=== PATIENT | male | born 1995 | race Caucasian/White ===

== ENCOUNTER → 2016-11-01 | Outpatient (CLI) | payer OTHER ==
--- NOTE | 2016-11-01 10:18 | REP ---
Chest two views HISTORY: Pre-employment exam Comparison: None The lungs are clear. The heart is normal in size. The pulmonary vasculature is normal in appearance. The bony structure is intact. IMPRESSION: No acute disease. Signed by Huang Laurent MD 11/01/2016 10:10 A
== END ==
LOC: M WUC 09:45
PROVIDERS: ATTEND Physician Assistant
DX: Z02.1 Encounter for pre-employment examination (principal)

== ENCOUNTER → 2016-12-11 | Outpatient (CLI) | payer OTHER ==
--- NOTE | 2016-12-11 18:34 | REP ---
Right foot series: Four views. History: Pain in the right foot. Findings: Four views of the right foot show overall normal mineralization. No fracture or subluxation is seen. No periosteal reaction is noted. Impression: Negative right foot radiographs. Signed by Rolf Suarez MD 12/12/2016 08:33 A
== END ==
LOC: M WUC 18:03
PROVIDERS: ATTEND Physician Assistant
DX: M79.671 Pain in right foot (principal)

== ENCOUNTER → 2016-12-12 | Outpatient (REF) | payer OTHER | LOC: M LAB REF 13:30 | PROVIDERS: ATTEND Physician Assistant | DX: J02.9 Acute pharyngitis, unspecified (principal) ==

== ENCOUNTER → 2017-09-02 | Outpatient (CLI) | payer OTHER | LOC: M WUC 08:39 | DX: M25.571 Pain in right ankle and joints of right foot (principal); M79.671 Pain in right foot | CPT/HCPCS: 73630 ==

== ENCOUNTER → 2017-10-26 | Outpatient (CLI) | payer OTHER | LOC: M RAD 09:48 | DX: M79.671 Pain in right foot (principal) | CPT/HCPCS: 78315 ==

== ENCOUNTER 2020-04-30 01:58 | Emergency (ER) | payer OTHER ==
[~2020-04-30] VITALS: Ht 182.9 cm; Wt 95.5 kg
[2020-04-30 02:24] LABS: BASO % 0.5 % (0.0-1.0); EOS # 0.2 10^3/uL (0.0-0.5); EOS % 2.1 % (0.0-3.0); HEMATOCRIT 42.9 % (42.0-52.0); LYMPH % 38.7 % (24.0-44.0); MEAN CORPUSCULAR HGB CONC 32.6 g/dl (32.0-36.5); MEAN CORPUSCULAR VOLUME 88.8 fl (80.0-96.0); MONO # 0.5 10^3/uL (0.0-0.8); MONO % 6.8 % (0.0-5.0); NEUTROPHILS % 51.8 % (36.0-66.0); PLATELET COUNT, AUTOMATED 257 10^3/uL (150-450); RED BLOOD COUNT 4.83 10^6/uL (4.30-6.10); WHITE BLOOD COUNT 7.8 10^3/uL (4.0-10.0)
[2020-04-30 02:24] LABS: ABG BASE EXCESS -1.8 (-2.0-2.0); ABG O2 SATURATION 99.6 % (95.0-99.0); ABG PARTIAL PRESSURE CO2 44.4 mmHg (35.0-45.0); ABG PARTIAL PRESSURE O2 296.7 mmHg (75.0-100.0); ABG TOTAL CO2 25.3 MEQ/L (22.0-29.0)
[2020-04-30 02:34] LABS: INR 1.06
[2020-04-30 02:35] LABS: PARTIAL THROMBOPLASTIN TIME 26.8 SECONDS (24.2-38.5)
[2020-04-30 02:59] LABS: ALBUMIN 3.6 GM/DL (3.2-5.2); ALT/SGPT 31 U/L (12-78); BILIRUBIN,DIRECT < 0.1 MG/DL (0.0-0.2); BILIRUBIN,TOTAL 0.3 MG/DL (0.2-1.0); BLOOD UREA NITROGEN 17 MG/DL (7-18); CALCIUM LEVEL 8.1 MG/DL (8.5-10.1); CARBON DIOXIDE LEVEL 29 MEQ/L (21-32); CHLORIDE LEVEL 105 MEQ/L (98-107); CK-MB VALUE MASS 2.4 NG/ML (<3.6); CPK CREATINE PHOSPHOKINASE 195 U/L (39-308); CREATININE FOR GFR 1.08 MG/DL (0.70-1.30); FREE T4 1.03 NG/DL (0.76-1.46); GLOMERULAR FILTRATION RATE > 60.0 (>60); GLUCOSE, FASTING 96 MG/DL (70-100); MB/CK RELATIVE INDEX 1.23 (< OR =4); POTASSIUM SERUM 3.6 MEQ/L (3.5-5.1); SODIUM LEVEL 138 MEQ/L (136-145); TOTAL PROTEIN 6.8 GM/DL (6.4-8.2); TROPONIN I < 0.02 NG/ML (< 0.10)
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
[2020-04-30 04:58] VITALS: BP 127/52
--- NOTE | 2020-05-01 07:58 | ECGEPIP ---
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
== END 2020-04-30 05:08 | disposition home or self-care (01) ==
LOC: M ED 01:58
DX: J70.5 Respiratory conditions due to smoke inhalation (principal); T59.811A Toxic effect of smoke, accidental (unintentional), initial encounter; Y92.89 Other specified places as the place of occurrence of the external cause; Y93.89 Activity, other specified; Y99.0 Civilian activity done for income or pay

== ENCOUNTER 2021-02-02 01:24 | Emergency (ER) | payer OTHER ==
--- OUTSIDE RECORDS SUMMARY | 2021-02-02 01:27 | CCD ---
Author Author [facility] Organization [facility] Address Unknown Phone Unavailable Care Team Providers Care Speaker Wirer Name Role Phone BREANNAKEYA PA Unavailable Unavailable BREANNA, KEYA PA Unavailable Unavailable BREANNA, KEYA PA Unavailable Unavailable BREANNA, KEYA PA Unavailable Unavailable BREANNA, KEYA PA Unavailable Unavailable BREANNA, KEYA PA Unavailable Unavailable BREANNA, KEYA PA Unavailable Unavailable BREANNA, KEYA PA Unavailable Unavailable BREANNA, KEYA PA Unavailable Unavailable BREANNA, KEYA PA Unavailable Unavailable BREANNA, KEYA PA Unavailable Unavailable BREANNA, KEYA PA Unavailable Unavailable BREANNA, KEYA PA Unavailable Unavailable BREANNA, KEYA PA Unavailable Unavailable BREANNA, KEYA PA Unavailable Unavailable BREANNA, KEYA PA Unavailable Unavailable BREANNA, KEYA PA Unavailable Unavailable BREANNA, KEYA PA Unavailable Unavailable BREANNA, KEYA PA Unavailable Unavailable BREANNA, KEYA PA Unavailable Unavailable BREANNA, KEYA PA Unavailable Unavailable BREANNA, KEYA PA Unavailable Unavailable BREANNA, KEYA PA Unavailable Unavailable BREANNA, KEYA PA Unavailable Unavailable BREANNA, KEYA PA Unavailable Unavailable BREANNA, KEYA PA Unavailable Unavailable BREANNA, KEYA PA Unavailable Unavailable BREANNA, KEYA PA Unavailable Unavailable BREANNA, KEYA PA Unavailable Unavailable BREANNA, KEYA PA Unavailable Unavailable BREANNA, KEYA PA Unavailable Unavailable BREANNA, KEYA PA Unavailable Unavailable BREANNA, KEYA PA Unavailable Unavailable BREANNA, KEYA PA Unavailable Unavailable BREANNA, KEYA PA Unavailable Unavailable BREANNA, KEYA PA Unavailable Unavailable Kandi Martin MD Unavailable Unavailable Martin, Kandi VanessaLoreto Unavailable Unavailable Martin, C Loreto MD Unavailable Unavailable Martin, C Loreto MD Unavailable Unavailable Martin, C Loreto MD Unavailable Unavailable Martin, C Loreto MD Unavailable Unavailable Martin, C Loreto MD Unavailable Unavailable Martin, C Loreto MD Unavailable Unavailable Martin, C Loreto MD Unavailable Unavailable Martin, C Loreto MD Unavailable Unavailable Martin, C Loreto MD Unavailable Unavailable Martin, C Loreto MD Unavailable Unavailable Martin, C Loreto MD Unavailable Unavailable Martin, C Loreto MD Unavailable Unavailable Martin, C Loreto MD Unavailable Unavailable Amrtin, C Loreto MD Unavailable Unavailable Martin, C Loreto MD Unavailable Unavailable Martin, C Loreto MD Unavailable Unavailable Martin, C Loreto MD Unavailable Unavailable Martin, C Loreto MD Unavailable Unavailable Martin, C Loreto MD Unavailable Unavailable Martin, C Loreto MD Unavailable Unavailable Martin, C Loreto MD Unavailable Unavailable Martin, C Loreto MD Unavailable Unavailable Martin, C Loreto MD Unavailable Unavailable Re-disclosure Warning The records that you are about to access may contain information from federally-assisted alcohol or drug abuse programs. If such information is present, then the following federally mandated warning applies: This information has been disclosed to you from records protected by federal confidentiality rules (42 CFR part 2). The federal rules prohibit you from making any further disclosure of this information unless further disclosure is expressly permitted by the written consent of the person to whom it pertains or as otherwise permitted by 42 CFR part 2. A general authorization for the release of medical or other information is NOT sufficient for this purpose. The Federal rules restrict any use of the information to criminally investigate or prosecute any alcohol or drug abuse patient.The records that you are about to access may contain highly sensitive health information, the redisclosure of which is protected by Article 27-F of the [facility] Public Health law. If you continue you may have access to information: Regarding HIV / AIDS; Provided by facilities licensed or operated by the [facility] Office of Mental Health; or Provided by the [facility] Office for People With Developmental Disabilities. If such information is present, then the following [facility] mandated warning applies: This information has been disclosed to you from confidential records which are protected by state law. State law prohibits you from making any further disclosure of this information without the specific written consent of the person to whom it pertains, or as otherwise permitted by law. Any unauthorized further disclosure in violation of state law may result in a fine or custodial sentence or both. A general authorization for the release of medical or other information is NOT sufficient authorization for further disc losure. Family History Family Member Name Family Member Gender Family Member Status Date o f Status Description Data Source(s) Unknown Male Problem MEDENT ([facility]) Unknown Unknown Problem [facility] ([facility]) Encounters Encounter Providers Location Date Indications Data Source(s ) Outpatient Attender: Loreto Martin MD 0 06/08/2020 08:42:32 AM EST - 06/08/2020 09:17:20 AM EST [facility] ([facility]) Outpatient Attender: KEYA block 03/19/2020 11:30:00 AM EST [facility] ([facility]) Medications No Information Insurance Providers Payer name Policy type / Coverage type Policy ID Covered alliance party ID Covered alliance party's relationship to [place] Policy [place] Plan Information [employer] (pr) Commercial [id number] Family Dependent [id number] [employer]pr[employer] Commercial [id number] Family Dependent [id number] UMR F [id number] PARENT [id number] UMR F [id number] PARENT [id number] UMR F [id number] PARENT [id number] [facility] [employer] [id number] Parent [id number] RPR- Needs Payer Match [id number] Parent [id number] [employer] Commercial [id number] Family Dependent [id number] [employer] Commercial [id number] Family Dependent [id number] UMR [facility] [id number] MO2 [id number] [employer] Commercial [id number] Family Dependent 91 0 UMR O [id number] C [id number] UMR [facility] [id number] [employer] / UMR F [id number] PARENT [id number] [employer] / UMR F [id number] PARENT [id number] [employer] [id number] MO2 [id number] [employer] (Old) Commercial [id number] Family Dependent [id number] Problems, Conditions, and Diagnoses No Information Surgeries/Procedures No Information Results ID Date Data Source [id number] 06/08/2020 12:00:00 AM EST [facility] Name Value Range Interpretation Code Description Data Jennifer rce(s) Supporting Document(s) SARS coronavirus 2 RNA [Presence] in Res piratory specimen by FAITH with probe detection NEGATIVE [facility] This lab was ordered by [facility] and reported by [facility]. ID Date Data Source [id number] 06/08/2020 12:00:00 AM EST [facility] Name Value Range Interpretation Code Description Data Jennifer rce(s) Supporting Document(s) Carestart Rapid COVID Antigen Test Negative [facility] This lab was reported by [facility]. ID Date Data Source [id number] 03/19/2020 12:00:00 AM EST [facility] Name Value Range Interpretation Code Description Data Jennifer rce(s) Supporting Document(s) SARS coronavirus 2 Ag [facility] This lab was ordered by [facility] and reported by [facility]. Procedure Social History No Information Vital Signs ID Date Data Source UNK Name Value Range Interpretation Code Description Data Source(s) Systolic blood pressure 124 mm[Hg] 124 mm[Hg] M [facility] ([facility] Diastolic blood pressure 76 mm[Hg] 76 mm[Hg] [facility] ([facility]) Heart rate 87 /min 87 /min [facility] Respiratory rate 16 /min 16 /min [facility] ( [facility]) Oxygen saturation in Arterial blood by Pulse oximetry 99 % 99 % [facility] ([facility]) Body temperature 98.7 [degF] 98.7 [degF] [facility] ([facility]) Body weight 210.00 [lb_av] 210.00 [lb_av] MEDEN T ([facility]) Body height 71 [in_i] 71 [in_i] [facility] ([facility]) 5'11" Body mass index (BMI) [Ratio] 29.3 kg/m2 29.3 k g/m2 [facility] ([facility])
[2021-02-02 02:30] VITALS: BP 135/60
--- OUTSIDE RECORDS SUMMARY | 2021-02-02 04:04 | CCD ---
Author Author [facility] Organization [facility] Address Unknown Phone Unavailable Care Team Providers Care Barrel Builder Name Role Phone KEYA CARLOS PA Unavailable Unavailable BREANNA, KEYA PA Unavailable [...] Unavailable Unavailable Kandi Martin MD Unavailable Unavailable Kandi Martin MD Unavailable Unavailable Kandi Martin MD Unavailable Unavailable Kandi Martin MD Unavailable Unavailable Kandi Martin MD Unavailable Unavailable Kandi Martin MD Unavailable Unavailable MartinKandi minaya MD Unavailable Unavailable MartinKandi minaya MD Unavailable Unavailable Martin C Loreto Unavailable Unavailable Martin C Loreto FRANCIS Unavailable Unavailable MartinKandi minayaine Unavailable Unavailable Martin C Loreto Unavailable Unavailable Kandi Martin MD Unavailable Unavailable Kandi Martin MD Unavailable Unavailable Kandi Martin MD Unavailable Unavailable Martin, Kandi Dangelo MD Unavailable Unavailable Kandi Martin MD Unavailable Unavailable Kandi Martin MD Unavailable Unavailable Kandi Martin MD Unavailable Unavailable Kandi Martin MD Unavailable Unavailable Kandi Martin MD Unavailable Unavailable Kandi Martin MD Unavailable Unavailable Martin, C Loreto Unavailable Unavailable Veronica C Loreto Unavailable Unavailable Martin, C Loreto Unavailable Unavailable Re-disclosure Warning The records that [...] is protected by Article 27-F of the [facility] Public Health law. If you continue you may have access to information: Regarding HIV / AIDS; Provided by facilities licensed or operated by the [facility] Office of Mental Health; or Provided by the [facility] Office for People With Developmental Disabilities. If such information is present, then the following [facility] mandated warning applies: This information has been [...] law may result in a fine or halfway sentence or both. A general authorization for [...] EST - 06/08/2020 09:17:20 AM EST [facility] ([facility]) Outpatient Attender: KEYA block 03/19/2020 11:30:00 AM EST [facility] ([facility]) Medications No Information Insurance Providers Payer name Policy type / Coverage type Policy ID Covered constitution party ID Covered constitution party's relationship to [place] Policy [place] Plan Information [employer] Commercial [id number] Family Dependent [id number] [employer] Commercial [id number] Family Dependent [id number] UMR F [id number] PARENT [id number] UMR F [id number] PARENT [id number] UMR F [id number] PARENT [id number] [facility] [employer] [id number] Parent [id number] RPR- Needs Payer Match [id number] Parent [id number] [employer] (Old) Commercial [id number] Family Dependent [id number] [employer] Commercial [id number] Family Dependent [id number] [employer] Commercial [id number] Family Dependent [id number] [place] [employer] [id number] SP [id number] [employer] Ppo Commercial [id number] Family Dependent 91 0 UMR [facility] [id number] MO2 [id number] UMR O [id number] C [id number] [facility] [id number] [employer] / UMR F [id number] PARENT [id number] [employer] / UMR F [id number] PARENT [id number] [employer] [id number] MO2 [id number] Problems, Conditions, and Diagnoses No Information Surgeries/Procedures No Information Results ID Date Data Source [id number] 06/08/2020 12:00:00 AM EST [facility] Name Value Range Interpretation Code Description Data Jennifer rce(s) Supporting Document(s) SARS coronavirus 2 RNA [Presence] in Res piratory specimen by FAITH with probe detection NEGATIVE [facility] This lab was ordered by [facility] and reported by [facility]. ID Date Data Source [id number] 06/08/2020 12:00:00 AM EST [facility] Name Value Range Interpretation Code Description Data Jennifer rce(s) Supporting Document(s) Carestart Rapid COVID Antigen Test Negative [facility] This lab was reported by [facility]. ID Date Data Source [id number] 03/19/2020 12:00:00 AM EST [facility] Name Value Range Interpretation Code Description Data Jennifer rce(s) Supporting Document(s) SARS coronavirus 2 Ag [facility] This lab was ordered by [facility] and reported by [facility]. Procedure Social History No Information Vital Signs ID Date Data Source UNK Name Value Range Interpretation Code Description Data Source(s) Systolic blood pressure 124 mm[Hg] 124 mm[Hg] M EDENT ([facility]) Diastolic blood pressure 76 mm[Hg] 76 mm[Hg] [facility]) Heart rate 87 /min 87 /min [facility] ([facility], [facility]) Respiratory rate 16 /min 16 /min [facility] ( [facility]) Oxygen saturation in Arterial blood by Pulse oximetry 99 % 99 % [facility] ([facility]) Body temperature 98.7 [degF] 98.7 [degF] [facility] ([facility], [facility]) Body weight 210.00 [lb_av] 210.00 [lb_av] MEDEN T ([facility]) Body height 71 [in_i] 71 [in_i] [facility] ([facility]) 5'11" Body mass index (BMI) [Ratio] 29.3 kg/m2 29.3 k g/m2 [facility] ([facility])
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
== END 2021-02-02 04:20 | disposition home or self-care (01) ==
LOC: M ED 01:24
DX: S50.01XA Contusion of right elbow, initial encounter (principal); S43.005A Unspecified dislocation of left shoulder joint, initial encounter; Y92.410 Unspecified street and highway as the place of occurrence of the external cause; Y35.833A Legal intervention involving a conducted energy device, suspect injured, initial encounter

== ENCOUNTER → 2021-02-07 | Outpatient (CLI) | payer OTHER ==
--- NOTE | 2021-02-07 08:35 | REP ---
INDICATION: LT SHOULDER INSTABILITY. COMPARISON: None. TECHNIQUE: Single axillary view of the left shoulder FINDINGS: Glenohumeral joint appears intact. No obvious fracture. IMPRESSION: Normal single axillary view of the left shoulder. <Electronically signed by Dwayne Mon > 02/07/21 0896
== END ==
LOC: M SOG 08:11
PROVIDERS: ATTEND Orthopaedic Surgery Sports Medicine
DX: M25.312 Other instability, left shoulder (principal)

== ENCOUNTER → 2021-03-01 | Outpatient (CLI) | payer OTHER ==
[~2021-03-01] MED LIST: ISOVUE-300 61% 50ML VIAL As Ordered ONE; LIDOCAINE 1% MDV 20ML VIAL As Ordered ONE; PROHANCE 279.3MG/ML 5ML VIAL As Ordered ONE
--- NOTE | 2021-03-01 14:02 | REP ---
INDICATION: INSTABILITY. COMPARISON: None. TECHNIQUE: Pre and post contrast 3T MRI of the left shoulder with MRI arthrogram was performed utilizing various sequences. The glenohumeral injection was performed by [place] [facility] FINDINGS: The pre injection portion of the examination shows mild patchy T2 hyper signal in the supraspinatus tendon. There is no supraspinatus musculotendinous retraction. There is no supraspinatus muscle atrophy. The acromioclavicular joint is within normal limits. The acromion process is type 1. There is no glenohumeral joint effusion. There is a small amount of fluid in the subcoracoid recess. Normal appearing low signal is seen throughout the subscapularis, infraspinatus, and teres minor tendons. The biceps tendon resides within the bicipital groove. The post injection portion examination shows abnormal linear signal in the superior labrum anterior to posterior. None of the injected fluid has migrated superior to the supraspinatus tendon. The glenohumeral ligaments are intact. IMPRESSION: There is evidence of a SLAP labral tear. There is slight supraspinatus tendinitis/tendinosis. <Electronically signed by Calvin Phillips > 03/01/21 0824
--- NOTE | 2021-03-01 16:35 | REP ---
INDICATION: INSTABILITY COMPARISON: None. TECHNIQUE: The procedure was performed under the direct supervision of Dr. Griffin. The benefits and risks including but not limited to pain, infection, bleeding and anaphylaxis were explained to the patient and informed consent was obtained. The left glenohumeral joint space was localized using fluoroscopic guidance. The skin was prepped and draped in a sterile fashion. 1% lidocaine was used as a local anesthetic. Using fluoroscopic guidance a 22 gauge spinal needle was inserted and advanced into the joint. 0.5 ml of Isovue-300 was injected to verify placement. 11 ml of a solution containing 20 ml of sterile saline and 0.15 ml of ProHance was injected into the joint. The needle was removed and the patient was taken to MRI for postprocedural imaging. The patient tolerated the procedure well and there were no immediate complications. Less than 6 seconds of fluoro time was utilized for this procedure. FINDINGS: None IMPRESSION: Fluoro guidance for left shoulder MRI arthrogram injection. <Electronically signed by Gus Crook > 03/01/21 1418 <Electronically signed by James Griffin > 03/01/21 [id number]
== END ==
LOC: M RADPRO 06:28
PROVIDERS: ATTEND Orthopaedic Surgery Sports Medicine
DX: S43.432A Superior glenoid labrum lesion of left shoulder, initial encounter (principal); M75.82 Other shoulder lesions, left shoulder; M25.312 Other instability, left shoulder; Y99.8 Other external cause status
CPT/HCPCS: 23350; 73223; 77002; A9576; Q9967

== ENCOUNTER 2021-03-12 09:05 | Outpatient (RCR) | payer OTHER | END 2021-03-19 | LOC: M PT 09:05 | PROVIDERS: ATTEND Orthopaedic Surgery Sports Medicine | DX: M25.312 Other instability, left shoulder (principal) ==

== ENCOUNTER → 2021-04-19 | Outpatient (RCR) | payer OTHER | LOC: M PT 03-21 09:09 | PROVIDERS: ATTEND Orthopaedic Surgery Sports Medicine | DX: M25.312 Other instability, left shoulder (principal) ==

== ENCOUNTER → 2024-02-02 | Outpatient (REF) | payer BC ==
[2024-02-02 18:47] LABS: HEMOGLOBIN 14.4 g/dl (13.5-17.5); MEAN CORPUSCULAR HEMOGLOBIN 28.6 pg (27.0-33.0); MEAN CORPUSCULAR VOLUME 89.5 fl (80.0-96.0); PLATELET COUNT, AUTOMATED 297 10^3/uL (150-450); RED BLOOD COUNT 5.03 10^6/uL (4.30-6.10); WHITE BLOOD COUNT 5.1 10^3/uL (4.0-10.0)
[2024-02-02 18:51] LABS: C REACTIVE PROTEIN QUANTITATIV < 0.40 MG/DL (<1.0)
[2024-02-02 18:53] LABS: ALKALINE PHOSPHATASE 63 U/L (46-116); ALT/SGPT 76 U/L (7.0-40); AST/SGOT 133 U/L (<34); BILIRUBIN,TOTAL 0.5 MG/DL (0.3-1.2); BLOOD UREA NITROGEN 14 MG/DL (9-23); CALCIUM LEVEL 9.7 MG/DL (8.5-10.1); CARBON DIOXIDE LEVEL 31 MMOL/L (20-31); CHLORIDE LEVEL 103 MMOL/L (98-107); CHOLESTEROL LEVEL 165 MG/DL (<200); CREATININE FOR GFR 0.83 MG/DL (0.70-1.30); FREE T4 1.27 NG/DL (0.89-1.76); GLOMERULAR FILTRATION RATE > 60.0 (>60); GLUCOSE, FASTING 88 MG/DL (60-100); HDL CHOLESTEROL 42.3 MG/DL (>40); LDL CHOLESTEROL 98.1 MG/DL (<100); NON-HDL-C 122.7 MG/DL; POTASSIUM SERUM 4.4 MMOL/L (3.5-5.1); SODIUM LEVEL 138 MMOL/L (136-145); TOTAL PROTEIN 7.4 G/DL (5.7-8.2); TRIGLYCERIDES LEVEL 123 MG/DL (<150)
[2024-02-02 18:55] LABS: ERYTHROCYTE SEDIMENTATION RATE 19 mm/hr (0-15)
[2024-02-05 10:58] LABS: ANA SCREEN, IFA POSITIVE (NEGATIVE)
[2024-02-06 23:32] LABS: LYME TOTAL ANTIBODY CIA <= 0.90 Index (<=0.90)
== END ==
LOC: M SFHCLERA 11:18
PROVIDERS: ATTEND Physician Assistant
DX: Z13.9 Encounter for screening, unspecified (principal); M25.50 Pain in unspecified joint; R53.83 Other fatigue

== ENCOUNTER → 2024-02-19 | Outpatient (REF) | payer BC ==
[2024-02-19 18:03] LABS: HEPATITIS B SURFACE ANTIGEN NEGATIVE (NEGATIVE)
[2024-02-19 18:23] LABS: HEPATITIS B CORE ANTIBODY IGM NEGATIVE (NEGATIVE); HEPATITIS C VIRUS ABY INDEX 0.03 INDEX (<0.8)
== END ==
LOC: M SFHCLERA 08:45
PROVIDERS: ATTEND Physician Assistant
DX: R53.83 Other fatigue (principal); R74.8 Abnormal levels of other serum enzymes

== ENCOUNTER → 2024-03-22 | Outpatient (CLI) | payer BC | LOC: M RAD 07:10 | PROVIDERS: ATTEND Physician Assistant | DX: R53.83 Other fatigue (principal); R74.8 Abnormal levels of other serum enzymes ==

== ENCOUNTER 2024-04-29 11:16 | Emergency (ER) | payer BC ==
[~2024-04-29] VITALS: Ht 182.9 cm; Wt 99.4 kg
[2024-04-29] MEDS: ACETAMINOPHEN 500 MG TAB PO ONE (15:57)
[2024-04-29] MEDS ORDERED: ONDA-282 PO (16:57)
[2024-04-29] MEDS: ONDANSETRON 4MG ORAL DISINTEGRATING TAB PO ONE (17:04)
[2024-04-29] MEDS: KETOROLAC 60MG 2ML VIAL IM ONE (17:05)
[2024-04-29 17:13] VITALS: BP 140/71; TEMP 96.9; O2SAT 98
== END 2024-04-29 17:15 | disposition home or self-care (01) ==
LOC: M ED 11:16
DX: S06.0X0A Concussion without loss of consciousness, initial encounter (principal); Y92.9 Unspecified place or not applicable; Y93.71 Activity, boxing; Y99.9 Unspecified external cause status; Z79.899 Other long term (current) drug therapy
CPT/HCPCS: 70450; 72125; 96372; 99283; J1885